=== PATIENT | female | born 1985 | race African-American/Black ===

== ENCOUNTER 2023-12-23 11:46 | Emergency (ER) | payer OTHER ==
[~2023-12-23] VITALS: Ht 167.6 cm; Wt 72.0 kg
[2023-12-23 12:24] VITALS: TEMP 98.5; O2SAT 100
[2023-12-23 12:46] LABS: BASOPHILS % 0.9 % (0.0-2.0); HEMATOCRIT. 38.1 % (36.0-48.0); HEMOGLOBIN. 12.7 g/dL (12.0-16.0); LYMPHOCYTES % 35.2 % (20.0-50.0); MEAN CORPUSCULAR HGB CONC 33.3 g/dL (31.0-37.0); MONOCYTES % 7.5 % (2.0-8.0); NEUTROPHILS % 54.4 % (40.0-76.0); PLATELET 232 x1000/uL (130-400); RED BLOOD CELL COUNT 4.24 mill/uL (4.2-5.4); RED CELL DISTRIBUTION WIDTH 12.9 % (11.6-14.6); WHITE BLOOD COUNT 7.3 x1000/uL (4.5-11.0)
[2023-12-23] MEDS ORDERED: KETOROLAC 30MG/ML VIAL IV ONE (13:15)
[2023-12-23 13:21] LABS: ALANINE AMINOTRANSFERASE 14 IU/L (10-49); ALBUMIN 4.7 g/dL (3.2-4.8); ASPARTATE AMINOTRANSFERASE 19 IU/L (<34); BILIRUBIN TOTAL 0.4 mg/dL (0.1-1.0); CALCIUM 9.2 mg/dL (8.7-10.4); CARBON DIOXIDE 26 mEq/L (21-32); CHLORIDE 106 mEq/L (98-107); GLUCOSE 81 mg/dL (70-105); POTASSIUM 3.8 mEq/L (3.5-5.1); PROTEIN TOTAL 7.9 g/dL (6.0-8.3); SODIUM 138 mEq/L (136-145); UREA NITROGEN BLOOD 16 mg/dL (9-23)
[2023-12-23] MEDS: SODIUM CHLORIDE 0.9% 1,000 ML IV ONE (13:31)
[2023-12-23 14:23] LABS: HCG SCREEN POSITIVE
[2023-12-23 14:40] LABS: B-HCG QUANTITATIVE 1077 mIU/mL (<3)
[2023-12-23] MEDS: KETOROLAC 15MG/ML VIAL IV NR (15:07)
[2023-12-23 17:46] VITALS: BP 105/75; PULSE 78; RESP 16
== END 2023-12-23 17:50 | disposition home or self-care (01) ==
LOC: ER 11:46
DX: R10.9 Unspecified abdominal pain (principal); N93.9 Abnormal uterine and vaginal bleeding, unspecified; Z98.890 Other specified postprocedural states; Z87.442 Personal history of urinary calculi
CPT/HCPCS: 80053; 84703; 84702; 83690; 85025; 86850; 86900; 86901; 36415; 74176; 76801; 76817; 96361; 96374; 99285; J1885; J7030; Z7610 ×2